=== PATIENT | male | born 1965 | race Caucasian/White ===

== ENCOUNTER 2019-01-31 16:09 | Emergency (ER) | payer BC, OTHER ==
--- NOTE | 2019-01-31 18:37 | EDM.PDOC ---
ED HPI GENERAL MEDICAL PROBLEM - General Chief Complaint: Cardiovascular Problem Stated Complaint: IRREGULAR HEARTBEAT ON 01/29 Time Seen by Provider: 01/31/19 17:15 Source of Information: Reports: Patient, Family History Limitations: Reports: No Limitations - History of Present Illness INITIAL COMMENTS - FREE TEXT/NARRATIVE: 53-year-old healthy male recently had an episode of tachycardia evaluated in [place] 2 days ago. He has a remote history of atrial fibrillation, at one point they discussed ablation but he lost weight and got healthier and he has not had any significant issues. He did have an echocardiogram at that time and he remembers it being reassuring. 2 days ago he had a sudden onset of palpitations , was evaluated by a remote clinic in [place] and was found to be in a rapid complex tachycardia which looked regular, heart rate of 160-170. He brought with him a recording. The provider was readying the patient for treatment when he laid down and it resolved to normal rhythm. No further evaluation was done and he was told to go directly home and check in as soon as he got to town to get this fixed. He otherwise feels fine he has not had any more episodes since. He is anxious. Onset: Sudden Duration: Hour(s): (Overall duration of symptoms was just under an hour) - Related Data Allergies Allergy/AdvReac Type Severity Reaction Status Date / Time No Known Allergies Allergy Verified 01/31/19 17:07 Home Meds: Home Meds NK [No Known Home Meds] 01/31/19 [History] Past Medical History HEENT History: Reports: Impaired Vision Cardiovascular History: Reports: Afib Musculoskeletal History: Reports: Back Pain, Chronic Psychiatric History: Reports: Anxiety Endocrine/Metabolic History: Reports: Obesity/BMI 30+ - Infectious Disease History Infectious Disease History: Reports: Chicken Pox - Past Surgical History Head Surgeries/Procedures: Reports: None HEENT Surgical History: Reports: Detached Retina, LASIK Cardiovascular Surgical History: Reports: None Respiratory Surgical History: Reports: None Endocrine Surgical History: Reports: None Musculoskeletal Surgical History: Reports: None Dermatological Surgical History: Reports: None Social & Family History - Tobacco Use Smoking Status *Q: Never Smoker - Caffeine Use Caffeine Use: Reports: Coffee - Recreational Drug Use Recreational Drug Use: No ED ROS GENERAL - Review of Systems Review Of Systems: See Below Constitutional: Denies: Fever, Chills, Malaise HEENT: Reports: No Symptoms Respiratory: Denies: Shortness of Breath Cardiovascular: Reports: Palpitations GI/Abdominal: Denies: Abdominal Pain, Nausea, Vomiting Musculoskeletal: Reports: No Symptoms Skin: Reports: No Symptoms ED EXAM, GENERAL - Physical Exam Exam: See Below Exam Limited By: No Limitations General Appearance: Alert, No Apparent Distress Head: Atraumatic Neck: Normal Inspection Respiratory/Chest: No Respiratory Distress, Lungs Clear Cardiovascular: Regular Rate, Rhythm, Other (Current rate is 62 and regular). No: Extra Beats GI/Abdominal: Soft, Non-Tender Extremities: Normal Inspection. No: Pedal Edema Neurological: Alert, Oriented Course - Vital Signs Last Recorded V/S: Last Vital Signs Temp 95.9 F 01/31/19 17:11 Pulse 77 01/31/19 17:15 Resp 16 01/31/19 17:11 BP 159/94 H 01/31/19 17:15 Pulse Ox 99 01/31/19 17:15 - Orders/Labs/Meds Labs: Laboratory Tests 01/31/19 01/31/19 Range/Units 18:00 18:00 WBC 7.0 (4.5-11.0) K/uL RBC 4.87 (4.30-5.90) M/uL Hgb 14.8 (12.0-15.0) g/dL Hct 43.0 (40.0-54.0) % MCV 88 (80-98) fL MCH 30 (27-31) pg MCHC 34 (32-36) % Plt Count 283 (150-400) K/uL Neut % (Auto) 66 (36-66) % Lymph % (Auto) 21 L (24-44) % Lee % (Auto) 10 H (2-6) % Eos % (Auto) 3 (2-4) % Baso % (Auto) 1 (0-1) % Sodium 139 L (140-148) mmol/L Potassium 4.4 (3.6-5.2) mmol/L Chloride 103 (100-108) mmol/L Carbon Dioxide 26 (21-32) mmol/L Anion Gap 14.4 H (5.0-14.0) mmol/L BUN 17 (7-18) mg/dL Creatinine 1.1 (0.8-1.3) mg/dL Est Cr Clr Drug Dosing 83.28 mL/min Estimated GFR (MDRD) > 60 (>60) Glucose 101 (74-106) mg/dL Calcium 9.6 (8.5-10.1) mg/dL Total Bilirubin 0.4 (0.2-1.0) mg/dL AST 31 (15-37) U/L ALT 49 (12-78) U/L Alkaline Phosphatase 71 (46-116) U/L Troponin I < 0.017 (0.000-0.056) ng/mL Total Protein 7.0 (6.4-8.2) g/dL Albumin 3.9 (3.4-5.0) g/dL Globulin 3.1 (2.3-3.5) g/dL Albumin/Globulin Ratio 1.3 (1.2-2.2) - Re-Assessments/Exams Free Text/Narrative Re-Assessment/Exam: 01/31/19 18:36 Cardiac tracing from 2 days ago was evaluated, it is a narrow complex tachycardia, very regular at a rate of 170. It is either SVT or 2:1 atrial flutter. A long discussion was had with the patient regarding possible treatments and expectations. A CBC and CMP were obtained along with a troponin. 02/01/19 07:04 Labs were normal. Departure - Departure Time of Disposition: 19:35 Disposition: Home, Self-Care 01 Condition: Good Clinical Impression: Narrow complex tachycardia Instructions: Supraventricular Tachycardia, Adult, [id number] Referrals: PCP,None [Primary Care Provider] - Forms: ED Department Discharge Care Plan Goals: Follow-up with a primary care physician in next several weeks to discuss possible ablation or further cardiac workup. Return sooner if symptoms recur especially if they are persistent.
== END 2019-01-31 19:35 | disposition home or self-care (01) ==
LOC: JP.ED 16:09
DX: R00.0 Tachycardia, unspecified (principal); I48.91 Unspecified atrial fibrillation
CPT/HCPCS: 36415; 80053; 84484; 85025; 99284

== ENCOUNTER 2019-05-01 02:07 | Emergency (ER) | payer BC, OTHER ==
--- NOTE | 2019-05-01 03:25 | EDM.PDOC ---
ED HPI GENERAL MEDICAL PROBLEM - General Chief Complaint: Cardiovascular Problem Stated Complaint: HEART ISSUES Time Seen by Provider: 05/01/19 02:32 Source of Information: Reports: Patient History Limitations: Reports: No Limitations - History of Present Illness INITIAL COMMENTS - FREE TEXT/NARRATIVE: This man said he woke up about 1:30 AM and his heart was racing. He felt like he might pass out. This only lasted a couple of minutes but seemed more intense than his previous episodes when he had SVT. 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 He was prescribed some kind of medication for this and his blood pressure but did not take it. We think it may have been metoprolol. Right now he's symptom-free. The only reason he decided to come in is that this time his symptoms seemed more severe. When this episode happened this morning he said he began to hyperventilate and he felt this feeling of like a football down his throat. But again it only lasted a couple of minutes. He admits to being very anxious but doesn't think it was a panic attack because he woke up with the feeling of a racing heart area - Related Data Allergies Allergy/AdvReac Type Severity Reaction Status Date / Time No Known Allergies Allergy Verified 05/01/19 02:14 Home Meds: Home Meds NK [No Known Home Meds] 01/31/19 [History] Past Medical History HEENT History: Reports: Impaired Vision Cardiovascular History: Reports: Afib, Other (See Below) Other Cardiovascular History: narrow complex SVT Musculoskeletal History: Reports: Back Pain, Chronic Psychiatric History: Reports: Anxiety Endocrine/Metabolic History: Reports: Obesity/BMI 30+ - Infectious Disease History Infectious Disease History: Reports: Chicken Pox - Past Surgical History HEENT Surgical History: Reports: Detached Retina, LASIK Cardiovascular Surgical History: Reports: None Respiratory Surgical History: Reports: None Endocrine Surgical History: Reports: None Social & Family History - Tobacco Use Years of Tobacco use: 38 Packs/Tins Daily: 0.5 - Caffeine Use Caffeine Use: Reports: Coffee - Recreational Drug Use Recreational Drug Use: No ED ROS GENERAL - Review of Systems Review Of Systems: ROS reveals no pertinent complaints other than HPI. ED EXAM, GENERAL - Physical Exam Exam: See Below Exam Limited By: No Limitations General Appearance: Alert, WD/WN, No Apparent Distress Eye Exam: Bilateral Eye: Normal Inspection Throat/Mouth: Normal Inspection Neck: Normal Inspection Respiratory/Chest: Lungs Clear Cardiovascular: Normal Peripheral Pulses, Regular Rate, Rhythm, No Murmur GI/Abdominal: Soft, Non-Tender Back Exam: Normal Inspection Extremities: Normal Inspection Neurological: Alert, Oriented, CN II-XII Intact, Normal Cognition, No Motor/ Sensory Deficits Psychiatric: Normal Affect Skin Exam: Warm, Dry Course - Vital Signs Last Recorded V/S: Last Vital Signs Temp 36.1 C 05/01/19 02:11 Pulse 60 05/01/19 03:10 Resp 15 05/01/19 02:11 BP 137/82 05/01/19 03:10 Pulse Ox 99 05/01/19 02:11 - Orders/Labs/Meds Orders: Active Orders 24 hr Category Date Time Status EKG Documentation Completion [RC] ASDIRECTED Care 05/01/19 02:33 Active EKG 12 Lead [EK] Urgent Ther 05/01/19 02:32 Ordered Labs: Laboratory Tests 05/01/19 05/01/19 Range/Units 02:45 02:45 WBC 8.6 (4.5-11.0) K/uL RBC 4.48 (4.30-5.90) M/uL Hgb 13.2 (12.0-15.0) g/dL Hct 38.9 L (40.0-54.0) % MCV 87 (80-98) fL MCH 30 (27-31) pg MCHC 34 (32-36) % Plt Count 258 (150-400) K/uL Neut % (Auto) 65 (36-66) % Lymph % (Auto) 20 L (24-44) % [place] % (Auto) 10 H (2-6) % Eos % (Auto) 4 (2-4) % Baso % (Auto) 1 (0-1) % Sodium 133 L (140-148) mmol/L Potassium 3.5 L (3.6-5.2) mmol/L Chloride 100 (100-108) mmol/L Carbon Dioxide 21 (21-32) mmol/L Anion Gap 15.5 H (5.0-14.0) mmol/L BUN 24 H (7-18) mg/dL Creatinine 1.2 (0.8-1.3) mg/dL Est Cr Clr Drug Dosing 76.34 mL/min Estimated GFR (MDRD) > 60 (>60) Glucose 107 H (74-106) mg/dL Calcium 8.2 L (8.5-10.1) mg/dL - Re-Assessments/Exams Free Text/Narrative Re-Assessment/Exam: 05/01/19 06:18 EKG shows normal sinus rhythm at 62 bpm, normal QRS normal ST and T waves. This patient remained symptom free during his entire time in the emergency department. Departure - Departure Time of Disposition: 03:21 Disposition: Home, Self-Care 01 Condition: Fair Clinical Impression: Palpitations Instructions: Palpitations, [id number] Referrals: PCP,None [Primary Care Provider] - Forms: ED Department Discharge Additional Instructions: It's possible that you are episode of rapid heartbeat was associated with a low potassium level. Your level was 3.5 which is just slightly below the lower limits. Potassium can be lost in vomiting and diarrhea but can also be lost in profuse sweating. Salt substitute is Peter potassium chloride. About a half a teaspoon per day for the next week should be sufficient as long as you avoid profuse perspiration. Your calcium level was also slightly low at 8.2. You can take extra calcium just by ingesting several Tums tablets every day Consider getting back on the medication that was prescribed for the rapid heartbeat and high blood pressure. See your Dr. cruz - My Orders Last 24 Hours: My Active Orders 05/01/19 02:32 EKG 12 Lead [EK] Urgent 05/01/19 02:33 EKG Documentation Completion [RC] ASDIRECTED - Assessment/Plan Last 24 Hours: My Active Orders 05/01/19 02:32 EKG 12 Lead [EK] Urgent 05/01/19 02:33 EKG Documentation Completion [RC] ASDIRECTED
== END 2019-05-01 03:29 | disposition home or self-care (01) ==
LOC: JP.ED 02:07
DX: R00.2 Palpitations (principal); E66.9 Obesity, unspecified; I48.91 Unspecified atrial fibrillation; F17.210 Nicotine dependence, cigarettes, uncomplicated
CPT/HCPCS: 36415; 80048; 85025; 93005; 99284-25

== ENCOUNTER 2019-12-21 15:30 | Emergency (ER) | payer BC, OTHER ==
--- NOTE | 2019-12-21 15:52 | EDM.PDOC ---
ED HPI GENERAL MEDICAL PROBLEM - General Chief Complaint: General Stated Complaint: MEDICAL VIA [facility]TH Time Seen by Provider: 12/21/19 15:41 Source of Information: Reports: Patient History Limitations: Reports: No Limitations - History of Present Illness INITIAL COMMENTS - FREE TEXT/NARRATIVE: pt was alone at home today. He went out for a walk and he got very weak and dizzy. He had ablation for tachycardia on wednesday. He did have some bleeding from the groin after the procedure. Onset: Sudden, Other ( pt became suddenly weak and dizzy. ) Duration: Hour(s): Location: Reports: Head, Chest Quality: Reports: Other (no pain) Severity: Mild Associated Symptoms: Reports: Weakness denies Pain Score (Numeric/FACES): 0 - Related Data Allergies Allergy/AdvReac Type Severity Reaction Status Date / Time No Known Allergies Allergy Verified 12/21/19 15:40 Home Meds: Home Meds NK [No Known Home Meds] 01/31/19 [History] Past Medical History HEENT History: Reports: Impaired Vision Cardiovascular History: Reports: Afib, Other (See Below) Other Cardiovascular History: narrow complex SVT Musculoskeletal History: Reports: Back Pain, Chronic Psychiatric History: Reports: Anxiety Endocrine/Metabolic History: Reports: Obesity/BMI 30+ - Infectious Disease History Infectious Disease History: Reports: Chicken Pox - Past Surgical History HEENT Surgical History: Reports: Detached Retina, LASIK Cardiovascular Surgical History: Reports: None Respiratory Surgical History: Reports: None Endocrine Surgical History: Reports: None Social & Family History - Caffeine Use Caffeine Use: Reports: Coffee ED ROS GENERAL - Review of Systems Review Of Systems: See Below Constitutional: Reports: No Symptoms HEENT: Reports: No Symptoms Respiratory: Reports: No Symptoms Cardiovascular: Reports: Other (heart rate was about 100) Endocrine: Reports: No Symptoms GI/Abdominal: Reports: No Symptoms : Reports: No Symptoms Musculoskeletal: Reports: No Symptoms Neurological: Reports: Dizziness Psychiatric: Reports: Anxiety ED EXAM, GENERAL - Physical Exam Exam: See Below Free Text/Narrative:: pt arrived with a history of feeling lite headed. His bp went quite high. He did become very anxious. He was taking a short walk whiole his was in town. Exam Limited By: No Limitations General Appearance: Alert, No Apparent Distress, Anxious, Other (pupils are equal and reactive. ) Ears: Normal TMs Nose: Normal Inspection Throat/Mouth: Normal Inspection Head: Atraumatic Neck: Normal Inspection Respiratory/Chest: No Respiratory Distress Cardiovascular: Regular Rate, Rhythm, Other (pt felt like his heart was fast about 90 and when he checked his bp it was high. ) GI/Abdominal: Soft, Non-Tender (Male) Exam: Deferred Rectal (Males) Exam: Deferred Back Exam: Normal Inspection Extremities: Normal Inspection Neurological: Alert, Oriented, Normal Cognition Course - Vital Signs Last Recorded V/S: Last Vital Signs Temp 35.9 C L 12/21/19 15:46 Pulse 75 12/21/19 17:08 Resp 10 L 12/21/19 17:08 BP 155/84 H 12/21/19 17:08 Pulse Ox 97 12/21/19 16:12 Orthostatic Blood Pressure [ 157/92 Standing] Orthostatic Blood Pressure [ 159/88 Sitting] Orthostatic Blood Pressure [ 143/87 Supine] - Orders/Labs/Meds Labs: Laboratory Tests 12/21/19 12/21/19 12/21/19 Range/Units 15:56 15:56 16:13 WBC 5.9 (4.5-11.0) K/uL RBC 4.61 (4.30-5.90) M/uL Hgb 14.2 (12.0-15.0) g/dL Hct 41.1 (40.0-54.0) % MCV 89 (80-98) fL MCH 31 (27-31) pg MCHC 35 (32-36) % Plt Count 286 (150-400) K/uL Neut % (Auto) 70 H (36-66) % Lymph % (Auto) 19 L (24-44) % Porter % (Auto) 9 H (2-6) % Eos % (Auto) 2 (2-4) % Baso % (Auto) 1 (0-1) % Sodium 134 L (140-148) mmol/L Potassium 4.1 (3.6-5.2) mmol/L Chloride 98 L (100-108) mmol/L Carbon Dioxide 22 (21-32) mmol/L Anion Gap 18.1 H (5.0-14.0) mmol/L BUN 9 D (7-18) mg/dL Creatinine 1.2 (0.8-1.3) mg/dL Est Cr Clr Drug Dosing 75.44 mL/min Estimated GFR (MDRD) > 60 (>60) Glucose 107 H (74-106) mg/dL Calcium 8.9 (8.5-10.1) mg/dL Total Bilirubin 0.5 (0.2-1.0) mg/dL AST 19 (15-37) U/L ALT 47 (12-78) U/L Alkaline Phosphatase 72 (46-116) U/L Total Protein 6.9 (6.4-8.2) g/dL Albumin 3.9 (3.4-5.0) g/dL Globulin 3.0 (2.3-3.5) g/dL Albumin/Globulin Ratio 1.3 (1.2-2.2) Urine Color Yellow (YELLOW) Urine Appearance Clear (CLEAR) Urine pH 8.0 (5.0-8.0) Ur Specific [place] 1.020 (1.008-1.030) Urine Protein Negative (NEGATIVE) mg/dL Urine Glucose (UA) Negative (NEGATIVE) mg/dL Urine Ketones Negative (NEGATIVE) mg/dL Urine Occult Blood Negative (NEGATIVE) Urine Nitrite Negative (NEGATIVE) Urine Bilirubin Negative (NEGATIVE) Urine Urobilinogen 0.2 (0.2-1.0) EU/dL Ur Leukocyte Esterase Negative (NEGATIVE) Urine RBC 0-5 (0-5) Urine WBC Not seen (0-5) Ur Epithelial Cells Not seen Amorphous Sediment Not seen Urine Bacteria Not seen Urine Mucus Not seen Meds: Medications Discontinued Medications Generic Name Dose Route Start Last Admin Trade Name Freq PRN Reason Stop Dose Admin Sodium Chloride 1,000 mls @ 999 mls/hr 12/21/19 16:15 12/21/19 16:41 Normal Saline IV 999 mls/hr ASDIRECTED JUSTEN Administration Sodium Chloride 1,000 mls @ 999 mls/hr 12/21/19 16:45 12/21/19 17:37 Normal Saline IV 999 mls/hr ASDIRECTED JUSTEN Administration Lorazepam 0.5 mg 12/21/19 16:34 12/21/19 16:44 Ativan PO 12/21/19 16:35 0.5 mg ONETIME ONE Administration - Re-Assessments/Exams Free Text/Narrative Re-Assessment/Exam: 12/21/19 17:06 pt is feeling better. He was mildly dehydrated. He also got panicky. pt was given ativan and he is feeling calmer. His bp is oming down. 12/21/19 17:32 pt was given 2 liters of fluid. He is feeling much better. 12/25/19 07:38 after the ablation he had abrubtly been stopped on the beta jermaine. Departure - Departure Time of Disposition: 18:55 Disposition: Home, Self-Care 01 Condition: Fair Clinical Impression: Anxiety, Dehydration - Discharge Information Instructions: Dehydration, Adult, [id number], Living With Anxiety Referrals: PCP,None [Primary Care Provider] - Forms: ED Department Discharge Care Plan Goals: push fluids, ativan .5 q6h prn for marked anxity. Sepsis Event Note - Focused Exam Date Exam was Performed: 12/25/19 Time Exam was Performed: 07:38
[2019-12-21] MEDS ORDERED: Sodium Chloride 0.9% 1,000 ML IV SCH ×2 (16:15→16:45)
[2019-12-21] MEDS ORDERED: LORazepam 0.5 MG Tab PO ONE (16:34)
== END 2019-12-21 18:52 | disposition home or self-care (01) ==
LOC: JP.ED 15:30
DX: F41.9 Anxiety disorder, unspecified (principal); E86.0 Dehydration; E66.9 Obesity, unspecified; I48.91 Unspecified atrial fibrillation; Z68.30 Body mass index [BMI] 30.0-30.9, adult
CPT/HCPCS: 36415; 80053; 81001; 85025; 96360; 96361; 99285; A9270; J7030

== ENCOUNTER 2020-09-04 01:37 | Emergency (ER) | payer BC, OTHER ==
--- NOTE | 2020-09-04 02:44 | EDM.PDOC ---
ED HPI GENERAL MEDICAL PROBLEM - General Chief Complaint: Cardiovascular Problem Stated Complaint: FAST HEART RATE Time Seen by Provider: 09/04/20 02:00 Source of Information: Reports: Patient History Limitations: Reports: No Limitations - History of Present Illness INITIAL COMMENTS - FREE TEXT/NARRATIVE: 55-year-old male with a history of paroxysmal supraventricular tachycardia, had an ablation in the spring but still struggles with chronic recurring anxiety. He takes an occasional Ativan for anxiety, took 1 earlier today because he was nervous about starting Lexapro by his primary care provider. He read through the possible side effects and it made him nervous. Tonight he was sleeping, woke up suddenly with palpitations that lasted 5 to 10 seconds but then he felt dizzy lightheaded and thought he should get checked out. When he arrived to the emergency room he was completely stable, in a sinus rhythm with a rate of 68 but still felt "funny". Onset: Unknown/Unsure (Woke with symptoms of fast heart rate, they only lasted 5 to 10 seconds) Associated Symptoms: Reports: Malaise, Other (Dizziness, lightheaded) denies Pain Score (Numeric/FACES): 0 - Related Data Allergies Allergy/AdvReac Type Severity Reaction Status Date / Time No Known Allergies Allergy Verified 09/04/20 02:00 Home Meds: Home Meds Escitalopram Oxalate 1 tab PO DAILY 09/04/20 [History] LORazepam [Ativan] 0.5 mg PO Q8H PRN 09/04/20 [History] Past Medical History HEENT History: Reports: Impaired Vision Cardiovascular History: Reports: Afib, Other (See Below) Other Cardiovascular History: narrow complex SVT Musculoskeletal History: Reports: Back Pain, Chronic Psychiatric History: Reports: Anxiety Endocrine/Metabolic History: Reports: Obesity/BMI 30+ - Infectious Disease History Infectious Disease History: Reports: Chicken Pox - Past Surgical History Head Surgeries/Procedures: Reports: None HEENT Surgical History: Reports: Detached Retina, LASIK Cardiovascular Surgical History: Reports: Cardiac Ablation Respiratory Surgical History: Reports: None Endocrine Surgical History: Reports: None Musculoskeletal Surgical History: Reports: None Dermatological Surgical History: Reports: None Social & Family History - Tobacco Use Tobacco Use Status *Q: Never Tobacco User Second Hand Smoke Exposure: No - Caffeine Use Caffeine Use: Reports: Coffee - Alcohol Use Days Per Week of Alcohol Use: 0 - Recreational Drug Use Recreational Drug Use: No ED ROS GENERAL - Review of Systems Review Of Systems: See Below Constitutional: Reports: Malaise. Denies: Fever, Chills HEENT: Denies: Vision Change Respiratory: Denies: Shortness of Breath Cardiovascular: Reports: Palpitations. Denies: Chest Pain GI/Abdominal: Denies: Abdominal Pain, Nausea Musculoskeletal: Reports: No Symptoms Skin: Reports: No Symptoms Neurological: Reports: Dizziness. Denies: Headache Psychiatric: Reports: Anxiety ED EXAM, GENERAL - Physical Exam Exam: See Below Exam Limited By: No Limitations General Appearance: Alert, Anxious Eye Exam: Bilateral Eye: Normal Inspection Head: Atraumatic Neck: Supple, Non-Tender Respiratory/Chest: No Respiratory Distress, Lungs Clear Cardiovascular: Regular Rate, Rhythm. No: Tachycardia, Extra Beats Extremities: Normal Inspection, Non-Tender. No: Pedal Edema Psychiatric: Anxious Skin Exam: Warm, Dry Course - Vital Signs Last Recorded V/S: Last Vital Signs Temp 95.6 F L 09/04/20 02:11 Pulse 68 09/04/20 02:11 Resp 16 09/04/20 02:11 BP 166/97 H 09/04/20 02:11 Pulse Ox 97 09/04/20 02:11 - Re-Assessments/Exams Free Text/Narrative Re-Assessment/Exam: 09/04/20 02:42 Visited with the patient for almost 1/2-hour while watching the monitor, he remained in a sinus rhythm. Very focused on his symptoms and the possibility of side effects from the Lexapro. He was wondering why his physician started him on it at such as a "high dose" of 10 mg, I told him that was actually the normal starting dose especially for a large adult. He could half this if he likes for the next 4 days but he needs to discuss this with his primary provider. He was discharged with 10 Ativan to use 1/2 pill up to twice daily for breakthrough anxiety until the Lexapro starts working. He can return if palpitations recur and are persistent. I recommended he try to continue the Lexapro as prescribed. Departure - Departure Time of Disposition: 02:54 Disposition: Home, Self-Care 01 Clinical Impression: Palpitations, Anxiety about health Instructions: Palpitations, [id number] Referrals: Sebastian James MD [Primary Care Provider] - Forms: ED Department Discharge Care Plan Goals: Use Ativan sparingly for exacerbations of anxiety until Lexapro can start working. Take one half of Lexapro daily for the next 4 days if you feel it is safer, but discuss this with Dr. James and let him know your intentions. Return anytime if palpitations recur and are persistent. Sepsis Event Note (ED) - Evaluation Sepsis Screening Result: No Definite Risk - Focused Exam Vital Signs: Vital Signs Temp Pulse Resp BP Pulse Ox 09/04/20 02:11 95.6 F L 68 16 166/97 H 97 09/04/20 01:54 95.6 F L 68 16 166/97 H 97
== END 2020-09-04 02:54 | disposition home or self-care (01) ==
LOC: JP.ED 01:37
DX: F41.9 Anxiety disorder, unspecified (principal); I48.91 Unspecified atrial fibrillation; E66.9 Obesity, unspecified; Z68.30 Body mass index [BMI] 30.0-30.9, adult; Z79.899 Other long term (current) drug therapy
CPT/HCPCS: 99284